=== PATIENT | male | born 1955 | race American Indian/Alaskan Native ===

== ENCOUNTER 2021-08-21 08:57 | Day surgery (SDC) | payer MEDICARE ==
[~2021-08-21 08:57] MED LIST: SODIUM CHLORIDE 0.9% 1000 ML 1,000 ML IV SCH
--- NOTE | 2021-08-21 10:02 | Anesthesia Consultation ---
Anesthesia Consult and Med Hx Date of service: 08/21/21 - Airway Anesthetic Teeth Evaluation: Dentures (upper), Partials (lower) ROM Head & Neck: Adequate Mental/Hyoid Distance: Adequate Mallampati Class: Class III Intubation Access Assessment: Possibly Difficult - Pre-Operative Health Status ASA Pre-Surgery Classification: ASA4 Proposed Anesthetic Plan: MAC - Pulmonary Hx Smoking: Yes SOB: Yes COPD: Yes Home Oxygen Therapy: Yes (3-4 l/min around the clock) Hx Sleep Apnea: Yes (uses CPAP) - Cardiovascular System Hx Hypertension: Yes Hx Heart Attack/AMI: No (h/o CHF) - Gastrointestinal Hx Ulcer: Yes (h/o colon polyps, GI bleed, positive cologuard test) - Endocrine Hx Renal Disease: Yes (Stage 4 renal failure, GFR 27%) Hx End Stage Renal Disease: No (no dyalisis) Hx Non-Insulin Dependent Diabetes: Yes
--- NOTE | 2021-08-21 10:03 | Anesthesia Day of Surgery ---
Anesthesia Day of Surgery - Day of Surgery Patient Examined: Yes Patient H&P Reviewed: Yes Patient is NPO: Yes Beta Blockers: Yes Cardiac Clearance: Yes Pulmonary Clearance: Yes
[2021-08-21] MEDS ORDERED: propofoL 200 MG/20 ML VIAL IV ONE (10:30)
[2021-08-21] MEDS ORDERED: ALBUTEROL 8.5 GM MDI INHALATION IH ONE (10:37)
--- NOTE | 2021-08-21 11:25 | Short Stay Summary ---
Short Stay Documentation Date of service: 08/21/21 Narrative H&P: The patient presents for diagnostic colonoscopy for a postive Cologuard test. - History Past Medical History: COPD, diabetes, hypertension, hyperlipidemia Past Surgical History: appendectomy Social history: no significant social history, , lives with family - Allergies and Medications Current Medications: Allergies levofloxacin [From Levaquin] Allergy (Verified 08/17/21 11:52) Unknown sulfamethoxazole [From Bactrim] Allergy (Verified 08/17/21 11:52) Unknown trimethoprim [From Bactrim] Allergy (Verified 08/17/21 11:52) Unknown Home Medications Medication Instructions Recorded Confirmed Last Taken Type Mirtazapine 45 mg PO QHS 11/05/12 11/05/12 11/05/12 History carvediloL [Coreg] 3.125 mg PO BID 11/05/12 11/05/12 11/04/12 History metFORMIN [Glucophage] 850 mg PO BID 11/05/12 11/05/12 11/03/12 History risperiDONE [RisperiDONE] 3 mg PO 11/05/12 11/05/12 11/04/12 History Active Medications Sodium Chloride (Nacl 0.9% 1000 Ml) 1,000 mls @ 50 mls/hr IV DIRECT ELOISE - Physical exam General appearance: no acute distress, well-nourished HEENT: Atraumatic, PERRLA, EOMI, Mucous membr. moist/pink Lungs: Clear to auscultation, Normal air movement Breasts: deferred Heart: Regular rate, Normal S1, Normal S2, No murmurs Gastrointestinal: normoactive bowel sounds, no tenderness, no distended, no masses, no guarding, no organomegaly Male Genitourinary: deferred Rectal Exam: normal exam-external/orifice, no mass Extremities: no ischemia, pulses intact, pulses symmetrical, No edema, normal temperature, normal color, Full ROM Neurological: Normal gait, Normal speech, Strength at 5/5 X4 ext, Normal tone, Sensation intact, Cranial nerves 3-12 NL - Brief post op/procedure progress note Date of procedure: 08/21/21 Procedure: see dictation Estimated blood loss: minimal Pathology: list (4 ascending colon polyps, 1 descending colon polyp) Specimen disposition: to lab Condition: stable - Disposition Condition at discharge: Good Disposition: 01 HOME / SELF CARE / HOMELESS - Discharge Diagnoses (1) Positive colorectal cancer screening using Cologuard test Status: Acute (2) COPD (chronic obstructive pulmonary disease) Status: Acute (3) HTN (hypertension) Status: Acute Short Stay Discharge Plan Activity: other (no driving for 24 hours.) Weight Bearing Status: Full Weight Bearing Diet: diabetic Follow up with: JIM MARTE MD [Primary Care Provider] - 7 Days
--- NOTE | 2021-08-21 11:29 | Operative Report ---
Operative Report Operative Report: Date of procedure: 08/21/2021 Preprocedure diagnosis: Diagnostic colonoscopy for positive Cologuard test Post procedure diagnosis: 4 ascending colon polyps and 1 descending colon polyp Procedure: Colonoscopy to the cecum with hot snare polypectomy x5 Endoscopist: Dr. Weber Anesthesia: Monitored anesthesia care per anesthesia department Estimated blood loss: 0 Medications: Monitored anesthesia care. See separate report by anesthesia for details. After careful discussion of the nature and purpose of the procedure as well as details of the technique risks benefits and alternatives the patient gave consent. Please see recent history and physical from the office. The patient was placed in the left lateral decubitus position and medicated per anesthesia. A rectal exam was performed sphincter tone was normal there were no masses palpable. The [employer] 570 scope was passed transanally and advanced under continuous direct vision without difficulty to the cecum. The colon was well prepared. The cecum was normal. There were 5 polyps in the ascending colon ranging in size from 8mm to 1.2 cm. All polyps were semisessile. All polyps were removed with the snare and electrocautery without difficulty. The larger polyp was retrieved by holding it on the tip of the scope and withdrawing the scope. The scope was then reintroduced and advanced to the site of the polypectomy and the colon inspected distally. The transverse colon was normal. There was a 7 mm semipedunculated polyp in the descending colon which was removed with hot snare and cautery and retrieved by suction. The sigmoid colon was normal. No bleeding was encountered post polypectomies. The rectum was normal on forward and retroflexed views. The procedure was well-tolerated overall and the patient was observed in recovery. Conclusions: 4 ascending colon polyps and 1 descending colon polyp all with a be nign appearance. Plan: Await pathology report. Repeat colonoscopy in 3 years if the patient remains in good health Signed electronically: Rojelio Weber M.D.
--- NOTE | 2021-08-21 12:32 | Post Anesthesia Evaluation ---
- Post Anesthesia Evaluation Patient Participated: Yes Airway Patent: Yes Stable Respiratory Function: Yes Nausea/Vomiting: No Temp > 96.8F: Yes Pain Manageable: Yes Adequeate Hydration: Yes Anesthesia Complications: No
[2021-08-21 15:09] VITALS: BP 158/77
== END 2021-08-21 12:00 | disposition home or self-care (01) ==
LOC: GIO 08:57
PROVIDERS: ATTEND Internal Medicine Gastroenterology
DX: R19.5 Other fecal abnormalities (principal); K63.5 Polyp of colon; I12.9 Hypertensive chronic kidney disease with stage 1 through stage 4 chronic kidney disease, or unspecified chronic kidney disease; N18.4 Chronic kidney disease, stage 4 (severe); E11.22 Type 2 diabetes mellitus with diabetic chronic kidney disease; J44.9 Chronic obstructive pulmonary disease, unspecified; E78.00 Pure hypercholesterolemia, unspecified; G47.30 Sleep apnea, unspecified; Z87.891 Personal history of nicotine dependence; Z79.899 Other long term (current) drug therapy; Z98.890 Other specified postprocedural states
CPT/HCPCS: 45385; 82962; 88305; J2704; J7030